=== PATIENT | female | born 1990 | race Caucasian/White ===

== ENCOUNTER 2018-02-16 13:33 | Emergency (ER) | payer OTHER ==
[~2018-02-16] VITALS: Ht 162.6 cm; Wt 52.2 kg
[~2018-02-16 13:33] MED LIST: AMOCLA875 PO; Bactrim Ds Tab1 EACH PO; CIPR500 PO; CYCL10 PO; Cleocin HCl150 MG PO; Doxycycline Hy100 MG PO; Flomax0.4 MG PO; HYDACE5 PO; IBUP800 PO; METO10 PO; NAPR500 PO; NEOPOLHCSU AS; OXYACE5T PO; PHENA100 PO; RXCYCL10 PO; RXHYDACE PO; RXOXYACE PO; Ultram50 MG PO; Zofran Odt4 MG SL
== END 2018-02-16 14:55 | disposition home or self-care (01) ==
LOC: ER 13:33
DX: S42.032A Displaced fracture of lateral end of left clavicle, initial encounter for closed fracture (principal); F17.210 Nicotine dependence, cigarettes, uncomplicated; W14.XXXA Fall from tree, initial encounter
CPT/HCPCS: 73030

== ENCOUNTER → 2023-11-30 | Outpatient (CLI) | payer OTHER ==
[2023-12-02 21:23] LABS: APTIMA MEDIA TYPE Unisex Swab; C. TRACHOMATIS BY TMA Negative (Negative); N. GONORRHOEAE BY TMA Negative (Negative); SPECIMEN SOURCE Cervical
== END ==
LOC: LAB 13:53 → LAB SHORT 13:53
PROVIDERS: Advanced Practice Midwife
DX: Z11.3 Encounter for screening for infections with a predominantly sexual mode of transmission (principal)
CPT/HCPCS: 87491; 87591

== ENCOUNTER 2025-02-06 22:19 | Emergency (ER) | payer OTHER ==
[~2025-02-06] VITALS: Ht 162.6 cm; Wt 63.5 kg
[2025-02-06] MEDS ORDERED: FentaNYL Citrate 50 MCG/ML 2 ML Injection ONE (22:25)
[2025-02-06] MEDS ORDERED: Lactated Ringer's 1,000 ML IV ONE ×2 (22:25→23:25)
[2025-02-06 22:39] LABS: BASOPHILS ABSOLUTE AUTO 0.07 K/mm3 (0.00-0.23); BASOPHILS PERCENT AUTO 1 % (0-2); EOSINOPHILS PERCENT AUTO 1 % (0-6); Hematocrit 35.6 % (33.0-51.0); Hemoglobin 12.6 g/dL (11.5-16.0); IMMATURE GRAN PERCENT AUTO 1 % (0-1); LYMPHOCYTES ABSOLUTE AUTO 3.32 K/mm3 (0.84-5.20); LYMPHOCYTES PERCENT AUTO 37 % (21-46); MONOCYTES ABSOLUTE AUTO 0.41 K/mm3 (0.16-1.47); MONOCYTES PERCENT AUTO 5 % (4-13); Mean Corpuscular HGB 30.8 pg (26.0-34.0); Mean Corpuscular HGB Conc 35.4 g/dL (31.5-36.5); Mean Corpuscular Volume 87 fL (80-100); Mean Platelet Volume 10.5 fL (9.1-12.4); NEUTROPHILS PERCENT AUTO 56 % (41-73); Platelet Count 323 K/mm3 (150-400); RDW Coefficient Variation 12.1 % (11.7-14.2); RDW Standard Deviation 38.7 fL (35.1-46.3); Red Blood Cell Count 4.09 M/mm3 (3.80-5.20)
[2025-02-06] MEDS ORDERED: Lactated Ringer's 1,000 ML IV SCH (22:40)
[2025-02-06] MEDS ORDERED: Diphth,Pertuss(Acell),Tet Vac 0.5 ML VIAL IM ONE (22:40)
[2025-02-06] MEDS ORDERED: FentaNYL Citrate 50 MCG/ML 2 ML Injection IV ONE ×2 (22:40→23:25)
[2025-02-06 22:55] LABS: International Normalized Ratio 0.98; Prothrombin Time Results 10.5 Sec (9.7-11.5)
[2025-02-06 22:57] LABS: Albumin, Blood 3.6 g/dL (3.4-5.0); Albumin/Globulin Ratio 1.1 (0.8-1.8); Bilirubin, Total 0.3 mg/dL (0.1-1.0); Bun/Creatinine Ratio 16.3 (12.0-20.0); Calcium, Blood 8.6 mg/dL (8.5-10.1); Creatinine, Blood 0.92 mg/dL (0.40-1.00); Globulin, Blood 3.4 g/dL (2.2-4.0); Magnesium, Blood 2.1 mg/dL (1.6-2.4); Potassium, Blood 3.2 mmol/L (3.5-5.5)
[2025-02-06] MEDS ORDERED: HYDROmorphone HCl/Pf 1MG SYR IV ONE (23:05)
[2025-02-06] MEDS ORDERED: LORazepam 2 MG/ML 1ML Injection IV ONE (23:45)
[2025-02-07] MEDS ORDERED: Ondansetron HCl 2 MG / ML 2ML Vial IV ONE (00:15)
[2025-02-07 00:40] VITALS: BP 110/76
[2025-02-07] MEDS ORDERED: Lactated Ringer's 1,000 ML IV SCH (00:40)
[2025-02-07] MEDS ORDERED: HYDROmorphone HCl/Pf 1MG SYR IV ONE ×2 (00:45→02:30)
[2025-02-07] MEDS ORDERED: NS 1,000 ML IV ONE (01:33)
[2025-02-07] MEDS ORDERED: NS 1,000 ML IV SCH (01:45)
[2025-02-07 02:01] LABS: Hematocrit 29.8 % (33.0-51.0); Hemoglobin 10.5 g/dL (11.5-16.0)
[2025-02-07] MEDS ORDERED: Methocarbamol 500 MG Tab PO ONE (02:25)
== END 2025-02-07 03:50 | disposition home or self-care (01) ==
LOC: ER 22:19
PROVIDERS: Student in an Organized Health Care Education/Training Program
DX: S72.351A Displaced comminuted fracture of shaft of right femur, initial encounter for closed fracture (principal); G89.11 Acute pain due to trauma; S61.411A Laceration without foreign body of right hand, initial encounter; S91.311A Laceration without foreign body, right foot, initial encounter; E87.6 Hypokalemia; D18.03 Hemangioma of intra-abdominal structures; F17.210 Nicotine dependence, cigarettes, uncomplicated; V57.5XXA Driver of pick-up truck or van injured in collision with fixed or stationary object in traffic accident, initial encounter
CPT/HCPCS: 70450; 71045; 71260; 72125; 72170; 73552; 73560-RT; 74177; 80053; 80320; 83735; 84703; 85014; 85018; 85025; 85610; 85730; 86850; 86900; 86901; 96361; 96374-59; 96375; 96376; 99285-25; A6590; A9270; J1171; J2060; J2405; J3010; J7030; J7120; Q9967

== ENCOUNTER 2025-05-08 20:52 | Emergency (ER) | payer OTHER ==
[~2025-05-08] VITALS: Ht 162.6 cm; Wt 68.0 kg
[2025-05-08] MEDS ORDERED: Ketorolac Tromethamine 15mg Vial IV ONE (21:10)
[2025-05-08 21:35] LABS: BASOPHILS ABSOLUTE AUTO 0.04 K/mm3 (0.00-0.23); BASOPHILS PERCENT AUTO 1 % (0-2); EOSINOPHILS ABSOLUTE AUTO 0.05 K/mm3 (0.00-0.68); EOSINOPHILS PERCENT AUTO 1 % (0-6); Hematocrit 38.4 % (33.0-51.0); Hemoglobin 13.3 g/dL (11.5-16.0); IMMATURE GRAN ABSOLUTE AUTO 0.02 K/mm3 (0.00-0.10); IMMATURE GRAN PERCENT AUTO 0 % (0-1); LYMPHOCYTES ABSOLUTE AUTO 1.66 K/mm3 (0.84-5.20); LYMPHOCYTES PERCENT AUTO 22 % (21-46); MONOCYTES ABSOLUTE AUTO 0.55 K/mm3 (0.16-1.47); MONOCYTES PERCENT AUTO 7 % (4-13); Mean Corpuscular HGB Conc 34.6 g/dL (31.5-36.5); Mean Corpuscular Volume 85 fL (80-100); NEUTROPHILS ABSOLUTE AUTO 5.19 K/mm3 (1.96-9.15); NEUTROPHILS PERCENT AUTO 69 % (41-73); NRBC ABSOLUTE 0.00 K/mm3 (0.00-0.02); NRBC Auto 0.0 /100 WBC (0.0-0.2); Platelet Count 356 K/mm3 (150-400); RDW Coefficient Variation 13.2 % (11.7-14.2); RDW Standard Deviation 39.9 fL (35.1-46.3)
[2025-05-08 21:52] LABS: Alanine Aminotransfer (ALT/SGP 23.0 U/L (12-78); Albumin, Blood 3.8 g/dL (3.4-5.0); Albumin/Globulin Ratio 0.9 (0.8-1.8); Anion Gap 7.0 mmol/L (3-11); Aspartate Aminotrans (AST/SGOT 28.0 U/L (12-37); Bilirubin, Total 0.5 mg/dL (0.1-1.0); Blood Urea Nitrogen 11.0 mg/dL (8-24); CO2, Blood 26.0 mmol/L (21-32); Calcium, Blood 8.9 mg/dL (8.5-10.1); Chloride, Blood 106.0 mmol/L (98-108); Creatinine, Blood 0.75 mg/dL (0.40-1.00); Globulin, Blood 4.2 g/dL (2.2-4.0); Glucose, Blood 108.0 mg/dL (70-99); Potassium, Blood 4.1 mmol/L (3.5-5.5); Sodium, Blood 135.0 mmol/L (136-145); Total Protein, Blood 8.0 g/dL (6.4-8.2)
[2025-05-08] MEDS ORDERED: OxyCODONE 7.5 mg/Acetam 325 mg TABLET PO ONE (23:25)
[2025-05-08 23:33] VITALS: BP 113/73
[2025-05-09] MEDS ORDERED: RX Prepack 6 Tabs Oxycodone 5mg UD ONE (01:10)
[2025-05-09] MEDS ORDERED: RX Prepack Albuterol 1 PREPACK/6.7 GM INH UD ONE (01:10)
[2025-05-09] MEDS ORDERED: Percocet 5-3251 EACH PO (01:17)
[2025-05-09] MEDS ORDERED: CEPH500 PO (01:17)
== END 2025-05-09 01:25 | disposition home or self-care (01) ==
LOC: ER 20:52
PROVIDERS: Student in an Organized Health Care Education/Training Program
DX: S61.213A Laceration without foreign body of left middle finger without damage to nail, initial encounter (principal); S60.022A Contusion of left index finger without damage to nail, initial encounter; F17.210 Nicotine dependence, cigarettes, uncomplicated; Z59.89 Other problems related to housing and economic circumstances; W23.0XXA Caught, crushed, jammed, or pinched between moving objects, initial encounter
CPT/HCPCS: 12002; 73130; 80053; 84703; 85025; 99283-25; A9270; J1885